=== PATIENT | female | born 1945 | race Caucasian/White ===

== ENCOUNTER 2017-01-25 00:38 | Emergency (ER) | payer OTHER ==
--- NOTE | 2017-01-25 02:07 | PDOC ---
History of Present Illness - General Chief Complaint: Injury Stated Complaint: INJURY/FINGER Time Seen by Provider: 01/25/17 02:07 - History of Present Illness Initial Comments: 71 year old female with HTN, asthma, COPD, and CHF presenting with right hand pain and bleeding after cutting it accidentally with a knife. She was cutting a shoe string to create a tie down for her mattress sheet when she was over aggressive with a large knife and slid it across her hand. The knife was clean and she had a tetanus shot a little over 5 years prior. She denies any drainage from the area besides bright red blood. She also had full range and sensation of her fingers directly after the incident. Denies fevers, chills, nausea, vomiting, diarrhea, constipation or other symptoms. 01/25/17 03:25 Past History - Past Medical History Allergies/Adverse Reactions: Allergies Allergy/AdvReac Type Severity Reaction Status Date / Time No Known Allergies Allergy Verified 01/25/17 01:59 COPD: Yes HTN: Yes - Immunization History Immunization Up to Date: No - Suicide/Smoking/Psychosocial Hx Smoking History: Never smoked Have you smoked in the past 12 months: No Information on smoking cessation initiated: No Hx Alcohol Use: Yes Drug/Substance Use Hx: No Substance Use Type: None Review of Systems - Review of Systems Constitutional: No: Chills, Fever HEENTM: No: Blurred Vision Respiratory: No: Cough, Orthopnea, Shortness of Breath Cardiac (ROS): No: Chest Pain, Edema, Irregular Heart Rate ABD/GI: No: Constipated, Diarrhea, Nausea, Poor Appetite, Vomiting : No: Burning, Dysuria, Discharge Neurological: No: Numbness, Paresthesia *Physical Exam - Vital Signs Last Vital Signs Temp Pulse Resp BP Pulse Ox 98.1 F 90 19 184/91 100 01/25/17 01:52 01/25/17 01:52 01/25/17 01:52 01/25/17 01:52 01/25/17 01:52 - Physical Exam General Appearance: Yes: Nourished, Appropriately Dressed. No: Apparent Distress HEENT: positive: EOMI, GRIS, Normal Voice Neck: positive: Trachea midline, Normal Thyroid, Supple. negative: Tender, Rigid Respiratory/Chest: positive: Lungs Clear, Normal Breath Sounds. negative: Chest Tender, Respiratory Distress, Accessory Muscle Use Cardiovascular: positive: Regular Rhythm, Regular Rate, S1, S2. negative: Murmur Gastrointestinal/Abdominal: positive: Normal Bowel Sounds, Flat, Soft. negative : Tender Musculoskeletal: positive: Other (small clean linear laceration to the medial palmar surface of the right fifth digit at the metacarpal-phalyngeal joint. Mild bleeding from site. Laceration measuring 1.25 cm in length and trapezoidal in structure.). negative: Normal Inspection Extremity: positive: Normal Capillary Refill, Normal Range of Motion, Tender. negative: Normal Inspection Integumentary: positive: Dry, Warm. negative: Normal Color Neurologic: positive: Fully Oriented, Alert, Normal Mood/Affect Procedures - Laceration/Wound Repair Right Anterior Medial Volar 5th digit Wound Length: to 2.5 cm Wound Explored: clean Wound's Depth, Shape: superficial Irrigated w/ Saline: Yes Betadine Prep: No Anesthesia: 1% Lidocaine Amount of Anesthetic (ccs): 4 (ml) Wound Repaired With: Sutures Suture Size/Type: 4:0, nylon Number of Sutures: 3 Sterile Dressing Applied: Yes Splint Applied: No Progress: 3 ml of lidocaine used along wound edges with good anesthesia after 500 ml of sterile water pressure cleansing. Three sutures 4-0 proline were used to achieve good approximation. Neurvascularly intact before and after the procedure. Bacitracin and loose clean dressing applied overtop. 01/25/17 03:40 Medical Decision Making - Medical Decision Making 71 year old female presenting with clean cut in right hand. Closed per procedure note. No need for tetanus shot as she had a clean cut and tetanus booster within 10 years. Will DC patient home with return instructions. Will have patient return in ten days for suture removal and follow up with hand surgeons within the week. 01/25/17 03:47 *DC/Admit/Observation/Transfer Diagnosis at time of Disposition: Hand laceration - Discharge Dispostion Disposition: HOME Condition at time of disposition: Improved Admit: No - Referrals Referrals: Alexis Alejandre MD [Primary Care Provider] - Socrates Krishnan MD [Staff Physician] - - Patient Instructions Printed Discharge Instructions: How to Care for a Laceration After Repair Additional Instructions: We saw you for a cut on your hand and repaired it with sutures. Please do not change the bandage for 24 hours. Please keep the area clean and dry. Return in 10 days for suture removal either to the ED or your primary care physician. Please follow up with the hand surgeon on this form within a week.
[2017-01-25 02:24] VITALS: BP 184/91; PULSE 90; TEMP 98.1; BMI 32.3
[2017-01-25] MEDS ORDERED: ACETAMINOPHEN 1000 MG/100 ML VIAL (NON FORMULARY) IVPB ONE (02:24)
[2017-01-25] MEDS ORDERED: ACETAMINOPHEN 325 MG TABLET (FP) ONE (02:36)
[2017-01-25] MEDS ORDERED: ACETAMINOPHEN 500 MG TABLET (FP) PO ONE (02:55)
--- NOTE | 2017-01-25 03:58 | PDOC ---
Attending Attestation - Resident Resident Name: SadiaTracycandido - ED Attending Attestation I have performed the following: I have examined & evaluated the patient, The case was reviewed & discussed with the resident, I agree w/resident's findings & plan, Exceptions are as noted - HPI HPI: 01/25/17 04:51 71 F with HTN, asthma, COPD, and CHF presenting with lac to R hand from clean knife. Last tetanus <10 years ago. - Physicial Exam PE: 01/25/17 04:52 1.25 cm lac to R lateral palm, just proximal to base of 5th digit. All extensor tendons intact. sensation intact to light touch distally. - Medical Decision Making 01/25/17 04:53 71 F with small lac to R hand. - Irrigation - Lac repair
== END 2017-01-25 05:02 | disposition home or self-care (01) ==
LOC: JER 00:38
PROC: 0HQFXZZ Repair Right Hand Skin, External Approach (ICD-10-PCS; principal; 2017-01-25)
DX: S61.411A Laceration without foreign body of right hand, initial encounter (principal); W26.0XXA Contact with knife, initial encounter; Y93.89 Activity, other specified; Y92.9 Unspecified place or not applicable; J44.9 Chronic obstructive pulmonary disease, unspecified; I10 Essential (primary) hypertension; I50.9 Heart failure, unspecified
CPT/HCPCS: 12001-25; 99281-25